=== PATIENT | female | born 1955 | race Caucasian/White ===

== ENCOUNTER 2017-04-18 20:21 | Emergency (ER) | payer OTHER ==
[~2017-04-18] VITALS: Ht 167.6 cm; Wt 73.0 kg
[2017-04-18 20:23] VITALS: Ht 167.6 cm; Wt 73.0 kg
[2017-04-18] MEDS ORDERED: ACETAMINOPHEN 325 MG TAB PO ONE (21:30)
[2017-04-18 21:52] LABS: ADD UMIC YES; UR ASCORBIC ACID NEGATIVE (NEGATIVE); UR BACTERIA FEW /HPF (NONE SEEN); UR BILIRUBIN (Dip) NEGATIVE (NEGATIVE); UR BLOOD (Dip) NEGATIVE (NEGATIVE); UR CLARITY CLEAR (CLEAR); UR COLOR STRAW (YELLOW); UR GLUCOSE (Dip) NEGATIVE (NEGATIVE); UR KETONES (Dip) NEGATIVE (NEGATIVE); UR LEUKOCYTE ESTERASE (Dip) 1+ Leu/ul (NEGATIVE); UR NITRITE (Dip) NEGATIVE (NEGATIVE); UR RBC 0 /HPF (0-5); UR SPECIFIC GRAVITY (Dip) 1.009 (1.003-1.030); UR TOTAL PROTEIN (Dip) NEGATIVE (NEGATIVE); UR UROBILINOGEN (Dip) NEGATIVE (NEGATIVE)
[2017-04-18 22:07] LABS: ADD SCAN DIFF NO
[2017-04-18 22:20] LABS: BASOPHILS % 0.3 % (0.0-2.0); EOSINOPHILS # 0.1 10^3/ul (0.0-0.5); EOSINOPHILS % 0.9 % (0.0-7.0); HEMATOCRIT 40.9 % (37.0-47.0); HEMOGLOBIN 13.4 g/dl (12.0-16.0); LYMPHOCYTES # 1.5 10^3/ul (0.8-2.9); LYMPHOCYTES % 13.7 % (15.0-51.0); MEAN CORPUSCULAR HEMOGLOBIN 29.3 pg (29.0-33.0); MEAN CORPUSCULAR HGB CONC 32.8 g/dl (32.0-37.0); MEAN CORPUSCULAR VOLUME 89.5 fl (82.0-101.0); MEAN PLATELET VOLUME 9.8 fl (7.4-10.4); MONOCYTE # 0.7 10^3/ul (0.3-0.9); NEUTROPHIL # 8.6 10^3/ul (1.6-7.5); NEUTROPHILS % 78.8 % (39.0-77.0); PLATELET COUNT 299 10^3/UL (140-415); RED BLOOD COUNT 4.57 10^6/ul (4.20-5.40); RED CELL DISTRIBUTION WIDTH 13.6 % (11.5-14.5)
--- NOTE | 2017-04-18 22:30 | RADRPT ---
PROCEDURE: CT abdomen and pelvis without contrast. CLINICAL INDICATION: Abdominal and pelvic pain TECHNIQUE: CT scan of the abdomen and pelvis without contrast was performed. Sagittal and coronal reformatted images were obtained from the axial source images. CTDI = 11.88 mGy; DLP = 620.18 mGy-c m COMPARISON: None. FINDINGS: Visualized lower thorax: Incidental calcified granuloma right middle lobe with minimal linear subse gmental atelectasis left lower lobe. There is no evidence for pleural effusion. Liver, gallbladder, pancreas and spleen: The liver is normal and size, contour and attenuation. Th ere is no evidence for a liver mass or ductal dilatation. The gallbladder is unremarkable. No comm on bile duct abnormality is demonstrated. The pancreas is unremarkable. The spleen is normal in si ze. Adrenal glands and genitourinary system: The adrenal glands are normal bilaterally. The kidneys are normal and size, contour and attenuation with no evidence for masses, calculi or hydronephrosis. T he ureters are unremarkable. Mild urinary bladder wall thickening of the fossa is 7 mm is equivocal for cystitis. The uterus and adnexa are grossly normal. Trace amount of free fluid in the posterior left cul-de-sac is noted Gastrointestinal system: The stomach is normal in caliber with no abnormality of significance. The small bowel is normal in caliber with no ileus, obstruction or wall thickening. The appendix and s urrounding fat are within the limits of normal. A moderate amount of fecal debris is seen throughou t the colon with a few scattered colonic diverticula. There is no evidence for colitis or diverticu litis. Peritoneum, retroperitoneum, lymph nodes and vessels: The abdominal aorta is normal in caliber. The re is no evidence for atherosclerotic calcification. The inferior vena cava is unremarkable. There is no evidence for adenopathy or mass. There is no ascites. Osseous structures and musculoskeletal findings: There is no fracture, lytic or blastic lesion. No muscular abnormality or soft tissue pathology is present. RPTAT:HJJR IMPRESSION: 1. Urinary bladder wall thickening unable to exclude cystitis. Consider urinalysis correlation if not already performed. 2. Small amount of nonspecific free fluid in the pelvic cul-de-sac, left possibly physiologic. 3. Mild constipation pattern. Genaro Vicente, Physician Date Time Electronically viewed and signed by Genaro Vicente Physician on 04/18/2017 22:30 JR/
[2017-04-18 22:45] LABS: ALBUMIN/GLOBULIN RATIO 0.95; BILIRUBIN,INDIRECT 0.1 mg/dl (0-1.1); BILIRUBIN,TOTAL 0.1 mg/dl (0.2-1.3); CALCIUM 9.1 mg/dl (8.4-10.2); CREATININE 0.83 mg/dl (0.44-1.00); POTASSIUM 3.9 mmol/L (3.5-5.1); TOTAL PROTEIN 8.2 g/dl (6.1-8.1)
[2017-04-18] MEDS ORDERED: AMOX1TAB10 PO (23:01)
[2017-04-18] MEDS ORDERED: NPH10OT LEFT EAR (23:01)
[2017-04-18] MEDS ORDERED: SODI126M NASAL (23:01)
[2017-04-18] MEDS ORDERED: IBUP-1542 PO (23:06)
--- NOTE | 2017-04-19 00:25 | ERD ---
ER Documentation Chief Complaint Date/Time DATE: 04/19/17 TIME: 00:15 Chief Complaint pelvic pain x 2 days HPI 62-year-old female complaining of left ear pain, sore throat, pelvic pain, body aches, and chills 2 days. Patient reports runny nose but no cough. Denies shortness of breath. Denies dysuria. Denies nausea, vomiting or diarrhea. Patient has history of total hysterectomy 30 years ago. ROS All systems reviewed and are negative except as per history of present illness. Medications Home Meds Active Scripts Ibuprofen* (Motrin*) 600 Mg Tab, 600 MG PO Q6H Y for PAIN AND OR ELEVATED TEMP, #30 TAB Prov:CIRILO MCKAY NP 04/18/17 Sodium Chloride (Saline Nasal Mist) 126 Ml Mist, 2 SPRAY NASAL Q2H Y for NASAL CONGESTION, #1 BOTTLE Prov:CIRILO MCKAY NP 04/18/17 Neomycin/Polymyxin/Hydrocort* (Cortisporin* Otic) 10 Ml Susp, 4 DROP LEFT EAR QID for 7 Days, EA Prov:CIRILO MCKAY NP 04/18/17 Amoxicillin/Potassium Clav (Amox-Clav 875-125 mg Tablet) 875-125 mg Tab, 1 TAB PO BID for 10 Days, #20 TAB Prov:CIRILO MCKAY NP 04/18/17 Allergies Allergies: Coded Allergies: No Known Allergy (Unverified , 12/14/13) PMhx/Soc Medical and Surgical Hx: pt denies Medical Hx, pt denies Surgical Hx Hx Alcohol Use: No Hx Substance Use: No Hx Tobacco Use: No Smoking Status: Never smoker Physical Exam Vitals Vital Signs Date Time Temp Pulse Resp B/P Pulse Ox O2 Delivery O2 Flow Rate FiO2 04/18/17 20:23 100.6 95 20 128/65 98 Physical Exam General: Well-developed, well-nourished, conscious and coherent, in no distress Skin: Warm and dry without rash, good texture and turgor Head: Normocephalic without evidence of trauma Eyes: Sclera and conjunctivae normal; pupils equal, round, and reactive to light; extraocular movements are intact Ears: Right canal patent, left canal erythematous and narrowed. Tympanic membranes are clear Nose/Face: Nasal mucosa erythematous and swollen. Mouth/throat: Mucous membranes are moist. Posterior pharynx clear without erythema or exudates Neck: Supple without meningismus or adenopathy. Carotids are equal. Trachea midline. No bruits or JVD Chest: Normal AP diameter. Good expansion without retractions. Nontender. Lungs are clear to auscultate bilaterally with good tidal volume Heart: Regular rate and rhythm. No murmur, rub, or gallops heard Abdomen: Soft and nontender without masses, guarding, or rebound. Bowel sounds are active. No hepatosplenomegaly Back: Without spinal or CVA tenderness Pelvis: Left pelvic tender to palpation Extremities: Full range of motion. Good strength bilaterally. No clubbing, cyanosis, or edema. Peripheral pulses are intact. Sensation intact Neuro: Alert and oriented 4, GCS 15. Cranial nerves grossly intact. Motor and sensory exams nonfocal. Moves all extremities. Speech clear. Gait normal Result Diagram: 04/18/17214404/[id number]/172144 Results 24 hrs Laboratory Tests Test 04/18/17 21:19 04/18/17 21:45 Urine Color STRAW Urine Clarity CLEAR Urine pH 7.0 Urine Specific [place] 1.009 Urine Ketones NEGATIVEmg/dL Urine Nitrite NEGATIVEmg/dL Urine Bilirubin NEGATIVEmg/dL Urine Urobilinogen NEGATIVEmg/dL Urine Leukocyte Esterase 1+Humza/ul Urine Microscopic RBC 0/HPF Urine Microscopic WBC 1/HPF Urine Bacteria FEW/HPF Urine Hemoglobin NEGATIVEmg/dL Urine Glucose NEGATIVEmg/dL Urine Total Protein NEGATIVEmg/dl White Blood Count 11.010^3/ul Red Blood Count 4.5710^6/ul Hemoglobin 13.4g/dl Hematocrit 40.9% Mean Corpuscular Volume 89.5fl Mean Corpuscular Hemoglobin 29.3pg Mean Corpuscular Hemoglobin Concent 32.8g/dl Red Cell Distribution Width 13.6% Platelet Count 71797^3/UL Mean Platelet Volume 9.8fl Neutrophils % 78.8% Lymphocytes % 13.7% Monocytes % 6.0% Eosinophils % 0.9% Basophils % 0.3% Nucleated Red Blood Cells % 0.0/100WBC Neutrophils # 8.610^3/ul Lymphocytes # 1.510^3/ul Monocytes # 0.710^3/ul Eosinophils # 0.110^3/ul Basophils # 0.010^3/ul Nucleated Red Blood Cells # 0.010^3/ul Sodium Level 141mmol/L Potassium Level 3.9mmol/L Chloride Level 100mmol/L Carbon Dioxide Level 27mmol/L Anion Gap 18 Blood Urea Nitrogen 13mg/dl Creatinine 0.83mg/dl Glucose Level 106mg/dl Calcium Level 9.1mg/dl Total Bilirubin 0.1mg/dl Direct Bilirubin 0.00mg/dl Indirect Bilirubin 0.1mg/dl Aspartate Amino Transf (AST/SGOT) 25IU/L Alanine Aminotransferase (ALT/SGPT) 42IU/L Alkaline Phosphatase 96IU/L Total Protein 8.2g/dl Albumin 4.0g/dl Globulin 4.20g/dl Albumin/Globulin Ratio 0.95 Lipase 43U/L Current Medications Medications (Trade) Dose Ordered Sig/Dani Route PRN Reason Start Time Stop Time Status Last Admin Dose Admin Acetaminophen (Tylenol Tab) 650 mg ONCE ONCE PO 04/18/17 21:30 04/18/17 21:31 DC 04/18/17 22:17 PROCEDURE: CT abdomen and pelvis without contrast. CLINICAL INDICATION: Abdominal and pelvic pain TECHNIQUE: CT scan of the abdomen and pelvis without contrast was performed. Sagittal and coronal reformatted images were obtained from the axial source images. CTDI = 11.88 mGy; DLP = 620.18 mGy-cm COMPARISON: None. FINDINGS: Visualized lower thorax: Incidental calcified granuloma right middle lobe with minimal linear subsegmental atelectasis left lower lobe. There is no evidence for pleural effusion. Liver, gallbladder, pancreas and spleen: The liver is normal and size, contour and attenuation. There is no evidence for a liver mass or ductal dilatation. The gallbladder is unremarkable. No common bile duct abnormality is demonstrated. The pancreas is unremarkable. The spleen is normal in size. Adrenal glands and genitourinary system: The adrenal glands are normal bilaterally. The kidneys are normal and size, contour and attenuation with no evidence for masses, calculi or hydronephrosis. The ureters are unremarkable. Mild urinary bladder wall thickening of the fossa is 7 mm is equivocal for cystitis. The uterus and adnexa are grossly normal. Trace amount of free fluid in the posterior left cul-de-sac is noted Gastrointestinal system: The stomach is normal in caliber with no abnormality of significance. The small bowel is normal in caliber with no ileus, obstruction or wall thickening. The appendix and surrounding fat are within the limits of normal. A moderate amount of fecal debris is seen throughout the colon with a few scattered colonic diverticula. There is no evidence for colitis or diverticulitis. Peritoneum, retroperitoneum, lymph nodes and vessels: The abdominal aorta is normal in caliber. There is no evidence for atherosclerotic calcification. The inferior vena cava is unremarkable. There is no evidence for adenopathy or mass. There is no ascites. Osseous structures and musculoskeletal findings: There is no fracture, lytic or blastic lesion. No muscular abnormality or soft tissue pathology is present. RPTAT:HJJR IMPRESSION: 1. Urinary bladder wall thickening unable to exclude cystitis. Consider urinalysis correlation if not already performed. 2. Small amount of nonspecific free fluid in the pelvic cul-de-sac, left possibly physiologic. 3. Mild constipation pattern. Physician Juan J Date Time Electronically viewed and signed by Physician Juan J on 04/18/2017 22:30 JR/ CC: CIRILO MCKAY. [employer] Procedures/MDM 62-year-old female presented ED with multiple complaints. She has a low-grade fever on arrival, Tylenol given to the patient for fever reduction. Patient has left otitis external on exam, no sign of mastoiditis. She also appear to have viral URI symptoms, low suspicion for pneumonia or bronchitis. CBC, CMP, lipase are unremarkable. UA has 1+ leukocytes, few bacteria, otherwise negative. CT abdomen and pelvis without IV contrast was obtained. Urinary bladder wall thickening consistent with cystitis is noted on CT. Mild constipation and small amount of free fluid is noted on CT as well. I consulted Dr. Villareal regarding this patient. Dr. Villareal recommended give patient Augmentin to treat her cystitis and otitis externa. Patient appears well, stable for discharge and outpatient management. Medical decision making shared with patient and family. Education provided to patient and family. Patient and family expressed understanding of the plan. Medications on discharge: Ibuprofen, Augmentin, Cortisporin Otic, saline nasal spray. Follow-up: Primary care provider in 2-3 days or return to ED if worse. Disclaimer: Inadvertent spelling and grammatical errors are likely due to EHR/ dictation software use and do not reflect on the overall quality of patient care. Also, please note that the electronic time recorded on this note does not necessarily reflect the actual time of the patient encounter. Departure Diagnosis: Primary Impression: Cystitis Additional Impressions: URI (upper respiratory infection) Otitis externa, acute Condition: Stable Patient Instructions: Adult Self-Care for Colds, Cystitis, External Ear Infection (Adult) Additional Instructions: Llame al doctor MAANA y guilherme esha SHANIA PARA DENTRO DE 2-3 DAMICO.Dgale a la secretaria que nosotros le instruimos hacer esta shania.Avise o llame si ribeiro condicin se empeora antes de la shania. Regresa aqui si peor o no mejor. CIRILO MCKAY NP Apr 19, 2017 00:24
== END 2017-04-18 23:16 | disposition home or self-care (01) ==
LOC: FTE 20:21
DX: N30.90 Cystitis, unspecified without hematuria (principal); J06.9 Acute upper respiratory infection, unspecified; H60.92 Unspecified otitis externa, left ear
CPT/HCPCS: 74176; 80053; 81001; 83690; 85025; Z7502; Z7610